=== PATIENT | male | born 1975 | race Caucasian/White ===

== ENCOUNTER 2016-10-28 20:16 | Emergency (ER) | payer OTHER, SELFPAY ==
[~2016-10-28 20:16] MED LIST: Iopamidol 370 76% 100 ML VIAL ONE; Sodium Chloride 0.9% 1,000 ML BAG ONE
[2016-10-28 20:36] LABS: #Basophils 0.1 thou/uL (0.0-0.2); #Eosinphils 0.1 thou/uL (0.0-0.7); #Lymphocytes 3.1 thou/uL (1.20-3.40); #Monocytes 0.4 thou/uL (0.11-0.59); #Neutrophils 5.5 thou/uL (1.40-6.50); %Basophils 1.3 % (0.0-1.0); %Eosinophils 0.8 % (0.0-10.0); %Lymphocytes 33.7 % (21.0-51.0); %Monocytes 4.8 % (0.0-10.0); %Neutrophils 59.5 % (42.0-75.0); Hemoglobin 13.4 g/dL (14.0-18.0); Mean Corpuscular HGB CONC 31.8 g/dL (32.0-36.0); Mean Corpuscular Hemoglobin 33.3 pg (27.0-31.0); Mean Corpuscular Volume 104.8 fl (80.0-94.0); Mean Platelet Volume 7.1 fL (7.4-10.4); Platelet Count 209 thou/uL (130-400); RBC Distribution Width 12.7 % (11.5-14.5); Red Blood Cell (RBC) Count 4.02 mill/uL (4.70-6.10); White Blood Cell (WBC) Count 9.3 thou/uL (4.8-10.8)
[2016-10-28 20:52] LABS: PTT 21.8 SEC (22.9-36.1)
[2016-10-28 21:02] LABS: ALT (SGPT) 53 U/L (8-55); AST (SGOT) 85 U/L (5-34); Albumin 4.3 g/dL (3.5-5.0); Alkaline Phosphatase 51 U/L (40-150); Anion Gap 17 mmol/L (10-20); BUN (Urea Nitrogen) 12 mg/dL (8.9-20.6); Bilirubin, Total 0.3 mg/dL (0.2-1.2); Calc. Creatinine Clearance 0 mL/min (70-130); Calcium 8.5 mg/dL (7.8-10.44); Carbon Dioxide 19 mmol/L (22-29); Chloride 111 mmol/L (98-107); Estimated GFR-MDRD Greater than 90; Globulin 2.6 g/dL (2.4-3.5); Glucose 86 mg/dL (70-105); Potassium 3.6 mmol/L (3.5-5.1); Protein, Total 6.9 g/dL (6.0-8.3); Sodium 143 mmol/L (136-145)
[2016-10-28] MEDS ORDERED: Ondansetron HCl/PF 4 MG/2 ML Vial ONE (21:09)
[2016-10-28] MEDS ORDERED: Ketorolac Tromethamine 30 MG/ML VIAL ONE (21:09)
[2016-10-28 22:28] LABS: Clarity Clear (Clear)
[2016-10-28 22:29] LABS: Bacteria/HPF None Seen HPF (None Seen); Bilirubin Negative (Negative); Blood, Urine Trace (Negative); Glucose, Urine (Dipstick) Negative (Negative); Leukocyte Negative (Negative); Nitrite Negative (Negative); Protein, Urine (Dipstick) Negative (Neg-Trace); RBC/HPF 0-3 HPF (0-3); Squamous Epithelial 0-3 HPF (0-3); Urobilinogen 0.2 mg/dL (0.2-1.0); WBC/HPF 0-3 HPF (0-3)
[2016-10-28 22:32] LABS: Acetaminophen Less than 6.0 mcg/mL (10.0-30.0); Alcohol 283 mg/dL (Less than 10); Salicylate Less than 8.0 mg/dL (15.0-30.0)
[2016-10-28 22:35] LABS: Amphetamine Not Detected (NotDetected); Barbiturates Screen Not Detected (NotDetected); Benzodiazepine Screen Not Detected (NotDetected); Cocaine Metabolite Screen Not Detected (NotDetected); Medtox Control Line Valid? VALID (VALID); Methadone Not Detected (NotDetected); Methamphetamine Not Detected (NotDetected); Opiate Screen Detected (NotDetected); Oxycodone Screen Not Detected (NotDetected); Phencyclidine (PCP) Not Detected (NotDetected); THC/Cannabinoid Screen Detected (NotDetected); Tricyclic Screen Not Detected (NotDetected)
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
== END 2016-10-28 22:55 | disposition home or self-care (01) ==
LOC: MADERS 20:16
DX: S42.022A Displaced fracture of shaft of left clavicle, initial encounter for closed fracture (principal); F17.220 Nicotine dependence, chewing tobacco, uncomplicated; Z79.899 Other long term (current) drug therapy; V48.5XXA Car driver injured in noncollision transport accident in traffic accident, initial encounter; Y93.C2 Activity, hand held interactive electronic device
CPT/HCPCS: 70450; 71260; 72125; 80053; 80306; 80307; 81001; 83690; 85025; 85610; 85730; 96361; 96374; 96375; G0390; J1885; J2270; J2405; J7050

== ENCOUNTER 2016-11-11 18:17 | Emergency (ER) | payer OTHER, SELFPAY | END 2016-11-11 19:45 | disposition home or self-care (01) | LOC: MADERS 18:17 | DX: S42.002A Fracture of unspecified part of left clavicle, initial encounter for closed fracture (principal); S50.02XA Contusion of left elbow, initial encounter; F17.220 Nicotine dependence, chewing tobacco, uncomplicated; V57.9XXA Unspecified occupant of pick-up truck or van injured in collision with fixed or stationary object in traffic accident, initial encounter | CPT/HCPCS: 99283 ==

== ENCOUNTER 2017-06-08 16:38 | Emergency (ER) | payer SELFPAY ==
[2017-06-08] MEDS ORDERED: Sulfameth/Trimethoprim DS 800-160mg TAB ONE (17:09)
== END 2017-06-08 17:15 | disposition home or self-care (01) ==
LOC: MADERS 16:38
DX: S60.416A Abrasion of right little finger, initial encounter (principal); S60.412A Abrasion of right middle finger, initial encounter; S60.414A Abrasion of right ring finger, initial encounter; L03.113 Cellulitis of right upper limb; F17.220 Nicotine dependence, chewing tobacco, uncomplicated; X58.XXXA Exposure to other specified factors, initial encounter
CPT/HCPCS: 99283